=== PATIENT | female | born 1985 | race Caucasian/White ===

== ENCOUNTER 2016-06-04 14:52 | Emergency (ER) | payer OTHER ==
[~2016-06-04] VITALS: Ht 167.6 cm; Wt 63.6 kg
[2016-06-04 15:22] VITALS: BP 133/88; PULSE 117; RESP 16; O2SAT 100
--- NOTE | 2016-06-04 17:14 | ED.REPORT ---
HPI-Rash / Abscess Date of Service Jun 04, 2016 ED Provider: Cristi Medina MD A 31 year old female with a history of MRSA and prior tooth extraction presents to the ED complaining of abscesses on her face and upper extremities onset 2 weeks ago. There is puss coming out of the abscess on her hands. She feels like the abscesses are going into her noise. She denies any fever, diaphoresis, or chills. She is not currently taking any current medications but does report an allergy to Lidocaine. She also has a toe nail on her left foot that she would like taken off, an injury from dropping a flashlight on her foot. She has a scratch on her arm from a sticker leggett. She is cranky because she has been waiting in the ED for a long time Nursing Notes Stated Complaint: INFECTION Chief Complaint: Skin Rash/Abscess Nursing Notes Reviewed: Yes ([employer] not reconciled) Allergies: Coded Allergies: Procaine HCl (Verified Allergy, Unknown, unknown, 06/04/16) Scheduled Chlorhexidine Gluconate (Chlorhexidine Gluconate) 118 Ml Liquid 10 ML TP DAILY Mupirocin (Mupirocin) 2 % Oin.pf.sheela 1 GM TP BID Sulfamethoxazole/Trimeth 800-160 mg (Bactrim DS) 1 Each Tablet 1 TABLET PO BID General Time Seen by MD: 17:11 Chief Complaint Abscess Hx Obtained From: Patient Arrived By: Walk-in Onset Occurred: More than a week ago... (2 weeks) Symptom Duration: Since onset Location: : Generalized Recent Healthcare: No recent doctor visit Similar Sx Previous: Yes (Has had MRSA in the past. ) Past Medical History Past Medical History abscess numerous lacerations prior tooth extractions MRSA in the past. Past Surgical History none Smoking History Current Every Day Smoker Social History Alcohol Use: Denies alcohol use Drug Use: In recovery, Meth, THC Other Social History: Good social support, Local resident Occupation unemployed, homeless Ambulatory Status Independent Review of Systems Review of Systems Note: Skin abscesses. Constitutional: Denies: Chills, Fever Skin: Denies Diaphoresis Complete sys rev & neg: except as marked. Physical Exam Physical Exam Notes: Initial Vital Signs Vital Signs (First) Date Time Temp Pulse Resp B/P Pulse Ox O2 Delivery O2 Flow Rate FiO2 06/04/16 15:22 37.2 117 16 133/88 100 Room Air Initial VS: Reviewed, Vital signs normal General/Constitutional: Awake, Alert, No acute distress (No visible distress), Well appearing Patient requests empiric treatment. Overall, the patient is in poor hygiene. Color / Condition: Positive: Lesion present... (Multiple skin lesions across face, hands, and upper extremities in various states of healing. All are scabbed over, none appear cellulitic. She reports purulence, but there are no signs of induration or drainage. Suspicious for MRSA. ) Head / Eyes: Normocephalic, PERRL, EOMI ENT: Airway patent, Mucous membranes moist Respiratory / Chest: Atraumatic, Breath sounds NL, Breath sounds = bilat, No respiratory distress, No rales, No rhonchi, No wheezing Cardiovascular: Heart rate NL, Regular rhythm, Heart sounds NL, No gallop, No murmurs, No rubs Upper Extremity / MS: No swelling, No edema Lower Extremity / Pelvis / MS: No swelling, No edema Neurologic: Oriented X3, Speech NL Neck: Full range of motion Abdomen: No guarding, No rebound Back: Full range of motion Wrist / Hand: Full range of motion Left second toe has a nail that came off from previous injury. The nail was already off but I removed it. No underlying infection of nail bed or any other problems. Re-Eval/Medical Decision Med Decision/Clinical Course This is a 31-year-old female presents with multiple lesions over the face and arms that she is concerned may be MRSA. She reports a previous history of MRSA in the past, "scratch on the hand and then developed an infection there, she drained it and does report some purulence, but then has developed several lesions in the face and arms-she reports she is drained them and they are now crusting over, but because she developed lesions on the face neck she would wishes to be treated with antibiotics for MRSA. She is not febrile she is not toxic she clinically appears well. She does have multiple lesions across the face, back of the neck, and upper extremities-however none appear clearly actively infected, there crusting over, but there is no induration, fluctuance or anything that appears amenable to incision and drainage, or particularly useful for a wound culture. The patient wishes to be simply empirically treated-and I think given the multiple lesions this is reasonable. The patient's being started on Bactrim, and have also recommended Bactroban ointment, and chlorhexidine washes. Additionally the patient reports a recent injury to the left second toe which he dropped a weight on it, not the toenail off, she wishes it removed. He was simply hanging on and did not require any special special management was simply removed. It did not require any instrumentation. The underlying nailbed looks okay with no signs of injury. There is no signs of infection there. She is discharged in stable condition. , Source of Hx: Old records Re-Evaluation/Progress : Time of Eval: 17:11 Re-Evaluation/Progress Note: Rechecked patient, discussed diagnosis, and plan for discharge. Patient understands and agrees with the plan. All questions addressed. 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 The multiple lesions are concerning for the possibility of MRSA. Per should any that have overt cellulitis, or signs that they are needing to be drained today-it appears that you have drained most of them and they are in various states of healing. Given there are multiple sites, an antibiotic to help prevent further spread and resolution is recommended. 2. Take the antibiotic trimethoprim sulfa 1 tablet twice a day for 14 days. You can also apply the antibiotic ointment mupirocin twice a day to the wounds. 3. I recommend [id number] chlorhexidine soap available at pharmacies and uses small amount daily across the skin-to reduce spread. 4. Remove the nail on the left foot that had been previously damage. We expect an email to occur, but will take a number of months-and the initial nail off and looks unusual, but normalizes over time. 5. Return if new or worsening symptoms. 6. If he needed primary care provider, follow up with the [facility] residency clinic Referrals: NOPCP (PCP) Scribe Attestation Portions of this note were transcribed by Theron Rivera. I, Dr. Medina personally performed the history, physical exam and medical decision-making; I reviewed and confirmed the accuracy of the information in the transcribed note. Signed by: Shawn Bermudez, 06/04/2016 [id number]. copies to: Cristi Sewell MD Jun 04, 2016 17:13 Theron Rivera Jun 04, 2016 17:22
[2016-06-04] MEDS ORDERED: Trimethoprim-Sulfa 160 mg-800 mg Tablet PO ONE (17:20)
[2016-06-04] MEDS ORDERED: SULF1TAB7 PO (17:28)
[2016-06-04] MEDS ORDERED: MUPI1OIN6 TP (17:28)
[2016-06-04] MEDS ORDERED: CHLO118L3 TP (17:28)
== END 2016-06-04 17:47 | disposition home or self-care (01) ==
LOC: SED 14:52
DX: S90.935A Unspecified superficial injury of left lesser toe(s), initial encounter (principal); T14.8 Other injury of unspecified body region; L02.01 Cutaneous abscess of face; L02.511 Cutaneous abscess of right hand; L02.512 Cutaneous abscess of left hand; B95.62 Methicillin resistant Staphylococcus aureus infection as the cause of diseases classified elsewhere; W20.8XXA Other cause of strike by thrown, projected or falling object, initial encounter; Y93.9 Activity, unspecified; Y99.8 Other external cause status; Y92.9 Unspecified place or not applicable; F17.200 Nicotine dependence, unspecified, uncomplicated; F15.10 Other stimulant abuse, uncomplicated; F12.10 Cannabis abuse, uncomplicated; Z59.0 Homelessness; Z88.4 Allergy status to anesthetic agent

== ENCOUNTER 2016-09-16 18:43 | Emergency (ER) | payer OTHER ==
[~2016-09-16] VITALS: Ht 167.6 cm; Wt 68.2 kg
[~2016-09-16 18:43] MED LIST: CHLO118L3 TP; MUPI1OIN6 TP; SULF1TAB7 PO
[2016-09-16 18:53] VITALS: BP 128/83; PULSE 92; RESP 16; O2SAT 100
== END 2016-09-16 19:26 | disposition left against medical advice (07) ==
LOC: SED 18:43
DX: K08.89 Other specified disorders of teeth and supporting structures (principal); Z53.21 Procedure and treatment not carried out due to patient leaving prior to being seen by health care provider

== ENCOUNTER 2016-11-18 23:37 | Inpatient (IN) | payer OTHER ==
[~2016-11-18] VITALS: Ht 167.6 cm; Wt 70.0 kg
[2016-11-18 23:41] VITALS: BP 138/90; PULSE 95; RESP 18; O2SAT 100
[2016-11-19] VITALS (7 sets, daily range): BP systolic 119–142; BP diastolic 70–90; PULSE 55–67; RESP 16; O2SAT 99–100
[2016-11-19] MEDS ORDERED: Famotidine Inj 20 MG in IV Premix 1 EACH IV ONE (00:45)
[2016-11-19] MEDS ORDERED: 0.9% Sodium Chloride 1,000 ML IV SCH (00:45)
[2016-11-19] MEDS ORDERED: Albuterol-Ipratropium 3 mL Inhalation Solution NEB ONE (00:45)
[2016-11-19] MEDS ORDERED: Promethazine Inj 25 MG in 0.9% Sodium Chloride 50 ML IV ONE (00:45)
--- NOTE | 2016-11-19 01:14 | ED.REPORT ---
HPI-Extremity Problem Upper Date of Service Nov 19, 2016 ED Provider: Hung Hylton MD Pt is a 31 y/o female who presents to the ED c/o a laceration to her right hand onset about 1700 on 11/17/16 . She states she was using a dirty filet knife when she cut her hand. Pt admits to shooting meth, but states that she did not shoot near her hand. Additional symptoms include erythema and edema to her right hand. She denies fever, chills, or diaphoresis. Nursing Notes Stated Complaint: STABBED RT HAND LAST NIGHT TIP POSSIBLY STILL IN Chief Complaint: Skin Rash/Abscess Nursing Notes Reviewed: Yes Allergies: Coded Allergies: Procaine HCl (Verified Allergy, Unknown, unknown, 06/04/16) Scheduled Chlorhexidine Gluconate (Chlorhexidine Gluconate) 118 Ml Liquid 10 ML TP DAILY Mupirocin (Mupirocin) 2 % Oin.pf.sheela 1 GM TP BID Sulfamethoxazole/Trimeth 800-160 mg (Bactrim DS) 1 Each Tablet 1 TABLET PO BID General Time Seen by MD: 01:13 Chief Complaint Hand injury right Hx Obtained From: Patient Arrived By: Walk-in Onset Occurred: 2 days ago Symptom Duration: Constant Caused by: Knife wound Location: : Hand right Quality: Painful Severity: Current: Mild Severity: Maximum: Moderate Immunizations: Tetanus not up to date Recent Healthcare: Recent doctor visit Similar Sx Previous: No Past Medical History Past Medical History abscess numerous lacerations prior tooth extractions MRSA in the past. Past Surgical History none Smoking History Current Every Day Smoker Social History Alcohol Use: Denies alcohol use Drug Use: IV drugs, Meth, THC Other Social History: Good social support, Local resident Occupation unemployed, homeless Ambulatory Status Independent Review of Systems Laceration to R hand with erythema and edema Constitutional: Denies: Chills, Fever Skin: Denies Diaphoresis Neurologic: Denies: Headache, Vision change Complete sys rev & neg: except as marked. Respiratory: Denies: Non-productive cough, Prod cough, clear, Shortness of breath Physical Exam Initial Vital Signs Vital Signs (First) Date Time Temp Pulse Resp B/P Pulse Ox O2 Delivery O2 Flow Rate FiO2 11/18/16 23:41 36.8 95 18 138/90 100 Room Air Initial VS: Reviewed Head / Eyes: Atraumatic, Normocephalic Neck: Supple, Full range of motion Abdomen / GI: Soft, Non-tender Lower Extremities: Vascular intact, Neuro intact, No swelling, No tenderness Neurologic: Alert, Oriented, Nonfocal Psychiatric: Mood/affect normal, Behavior normal, Normal thought content General/Constitutional: Awake, Alert Respiratory / Chest: Atraumatic, Breath sounds NL, Breath sounds = bilat, No respiratory distress Cardiovascular: Heart rate NL, Regular rhythm, Heart sounds NL Wrist/Hand: Severe tenderness along extensor tendon Laceration at MCP joint in R hand Interpretation & Diagnostics Lab Results Interpretation Result Diagram: 11/19/16 0140 11/19/16 0140 Test 11/19/16 01:40 White Blood Count 9.3th/mm3 (3.8-10.1) Red Blood Count 4.87mil/mm3 (3.90-5.20) Hemoglobin 14.4g/dL (12.0-15.6) Hematocrit 42.8% (35.0-46.0) Mean Corpuscular Volume 87.9fL (81-100) Mean Corpuscular Hemoglobin 29.6pg (27.0-35.0) Mean Corpuscular Hemoglobin Concent 33.6% (32.0-37.0) Red Cell Distribution Width 14.0% (12.3-15.4) Platelet Count 258bil/L (150-400) Neutrophils (%) (Auto) 63.6% (40-74) Lymphocytes (%) (Auto) 23.8% (14-46) Monocytes (%) (Auto) 10.1% (4-12) Eosinophils (%) (Auto) 2.1% (0-5) Basophils (%) (Auto) 0.3% (0-3) Erythrocyte Sedimentation Rate 3mm/hr (0-32) Prothrombin Time 9.5sec (8.1-12.5) Prothromb Time International Ratio 0.89ratio Activated Partial Thromboplast Time 27.4sec (22.8-33.0) Sodium Level 137mEq/L (134-144) Potassium Level 4.2mEq/L (3.5-5.2) Chloride Level 100mEq/L (97-108) Carbon Dioxide Level 26mmol/L (18-29) Blood Urea Nitrogen 18mg/dL (6-20) Creatinine 0.60mg/dL (0.57-1.00) Estimat Glomerular Filtration Rate 169mL/min (>59) Glucose Level 88mg/dL (60-99) Lactic Acid Level 0.5mmol/L (0.4-2.0) Calcium Level 9.1mg/dL (8.5-10.1) Magnesium Level 2.2mg/dL (1.6-2.6) Total Bilirubin < 0.2mg/dL (0.0-1.2) Aspartate Amino Transf (AST/SGOT) 17U/L (0-50) Alanine Aminotransferase (ALT/SGPT) 17U/L (0-32) Alkaline Phosphatase 78U/L (25-150) Total Protein 7.8g/dL (6.4-8.4) Albumin 4.2g/dL (3.4-5.0) Procalcitonin 0.04ng/mL (0.00-0.08) X-Ray Chest Interpretation Chest Xray Interpretation: No acute findings. View: Portable, 1 view Interpretation / Wet Read by: Wet read ED physician Re-Eval/Medical Decision Med Decision/Clinical Course 31-year-old intermittent IV drug abuser presents after a deep puncture wound with a fillet knife into the dorsum of her MCP second finger right hand. She has exquisite tenderness to extension and tenderness over the extensor tendon consistent with developing Tenosynovitis. Begun with IV antibiotics and orthopedics contacted and will see this morning. Fingers placed in a splint Source of Hx: Old records Re-Evaluation/Progress : Time of Eval: 01:13 Re-Evaluation/Progress Note: Discussed plan for admission. Pt understands and agrees with plan. All questions addressed. Consultation #1: Referral / Consult Name: Matty Stuart MD Consulted With: Hospitalist Call Returned at: 03:00 Water Sponger: Will see patient, Agrees with plan, Accepts admit Note: Discussed pt's case with hospitalist, Dr. Stuart. He accepts admission. Consultation #2: Referral / Consult Name: Dennis Suggs DO Consulted With: Ortho hand Call Returned at: 06:16 Water Sponger: Will see patient, Agrees with eval, Agrees with plan Note: Discussed pt's case with orthoDr. Suggs. Counseled Regarding: Diagnosis, Lab results, Need for admission Discharge & Departure Impression: Primary Impression: Puncture wound, hand Encounter type: initial encounter Foreign body presence: unspecified Laterality: right Qualified Code: S61.431A - Puncture wound without foreign body of right hand, initial encounter Additional Impressions: Other tenosynovitis of hand and wrist Methamphetamine abuse Disposition: ADMITTED TO HOSPITAL Discharge Condition All VS Reviewed: Yes Condition: Stable Referrals: Arabella Hernandez MD Scribe Attestation Portions of this note were transcribed by Bisi Reynoso. I, Dr. Hylton, personally performed the history, physical exam and medical decision-making; I reviewed and confirmed the accuracy of the information in the transcribed note. copies to: Arabella Hernandez MD, Christopher W MD Nov 19, 2016 01:14 Bisi Reynoso Nov 19, 2016 01:24
[2016-11-19] MEDS ORDERED: 0.9% Sodium Chloride 1,000 ML IV ONE (01:21)
[2016-11-19] MEDS ORDERED: Meropenem Inj 1,000 MG in 0.9% Sodium Chloride 100 ML IV ONE (01:25)
[2016-11-19] MEDS ORDERED: Clindamycin Inj 900 MG in IV Premix 1 EACH IV ONE (01:25)
[2016-11-19] MEDS ORDERED: Vancomycin Dose per Pharmacist XX ONE (01:25)
[2016-11-19] MEDS ORDERED: Vancomycin Inj 1,500 MG in 0.9% Sodium Chloride 500 ML IV ONE (01:30)
[2016-11-19 01:50] LABS: BASOPHILS % (AUTO) 0.3 % (0-3); EOSINOPHILS % (AUTO) 2.1 % (0-5); MONOCYTES % (AUTO) 10.1 % (4-12); Mean Corpuscular Hemoglobin 29.6 pg (27.0-35.0); Mean Corpuscular Volume 87.9 fL (81-100); NEUTROPHILS % (AUTO) 63.6 % (40-74); Platelet Count 258 bil/L (150-400)
[2016-11-19 02:07] LABS: ERYTHROCYTE SEDIMENTATION RATE 3 mm/hr (0-32)
[2016-11-19 02:09] LABS: INR 0.89 ratio
[2016-11-19 02:26] LABS: Magnesium 2.2 mg/dL (1.6-2.6)
[2016-11-19] MEDS ORDERED: Ondansetron 2 mg/mL 2 mL Inj IVPUSH PRN (03:00)
[2016-11-19] MEDS ORDERED: Polyethylene Glycol (PEG) 17 Gm Powder PO PRN (03:00)
[2016-11-19] MEDS ORDERED: Alum-Mag Hydrox-Simeth 30 mL Suspension PO PRN (03:00)
[2016-11-19] MEDS ORDERED: oxyCODONE-Acetamin 5-325 mg Tablet PO ONE (03:55)
--- NOTE | 2016-11-19 03:58 | PCM.HPMED ---
Subjective Date of Service Nov 19, 2016 Primary Provider: Admitting Physician: Primary Care Physician: Sara Attending Physician: Admit Status: From the Emergency Department, Full Admit Chief Complaint: Right hand swelling and pain History of Present Illness: Bhavani Leon is a 31 yo female with Methamphetamine IV Abuse, Multiple infections including MRSA who presents to [facility] emergency department c/o a laceration to her right hand. Patient reported she accidentally stable her right hand with a knife on Friday. She was some bleeding initially and a small open wound. Progressively worsening in terms of swelling and pain to the point she cannot make a fist or open hand, especially pointing finger. Denies any fever or chills. She admits to shooting meth, but states that she did not shoot near her hand. Case discussed with Dr Hylton, concerning for tendosynovitis. Plans to admit for IV antibiotics and assessment by the Orthopedic surgeons Review of Systems: Pertinent positives as noted in HPI. All other systems were reviewed and are negative Allergies Coded Allergies: Procaine HCl (Verified Allergy, Unknown, unknown, 06/04/16) Home Medications None reported PMH Tooth Abscess numerous lacerations Prior tooth extractions MRSA infections in the past . Surgical History none Family History Both parents healthy Social History Hx Alcohol Use: No Hx Substance Use: Yes (meth) Hx Tobacco Use: Yes Smoking Status: Current Every Day Smoker Living Arrangement: Homeless Exam Vital Signs Vital Sign - Last Date Time Temp Pulse Resp B/P Pulse Ox O2 Delivery O2 Flow Rate FiO2 11/18/16 23:41 36.8 95 18 138/90 100 Room Air Exam General: Alert, Oriented X3, Cooperative, No acute Distress Eyes: PERRLA, Scleral Anicteric Mouth: Mouth Normal, Mucous Membranes Moist/Abrams Neck: Supple, no Thyromegaly, trachea central. Chest & Lungs: Clear to auscultation & percussion, No adventitious breath sounds, no crackles, no wheeze Cardiovascular: Normal S1, Normal S2, No Murmurs/Rubs/Gallops, Regular Rate/ Rhythm Pulses: Radial (present and equal), Dorsalis Pedi (present and equal) Abdomen: Soft, Non-tender, Non-distended, Normoactive bowel tones. Musculoskeletal: Unremarkable. Normal range of motion, no swollen or erythematous joints Extremities: No edema, no cyanosis, no clubbing. Left hand in a dressing ( Severe tenderness along extensor tendon. Laceration at MCP joint in R hand) Skin: No rashes. Warm and dry, no erythematous areas Neurological: Grossly neurologically intact, Normal Speech, Sensation Intact Lymphatic: Lymph nodes Cervical and Axillary not palpable. Lab and Diagnostics Labs Laboratory Tests Test 11/19/16 01:40 White Blood Count 9.3th/mm3 (3.8-10.1) Red Blood Count 4.87mil/mm3 (3.90-5.20) Hemoglobin 14.4g/dL (12.0-15.6) Hematocrit 42.8% (35.0-46.0) Mean Corpuscular Volume 87.9fL (81-100) Mean Corpuscular Hemoglobin 29.6pg (27.0-35.0) Mean Corpuscular Hemoglobin Concent 33.6% (32.0-37.0) Red Cell Distribution Width 14.0% (12.3-15.4) Platelet Count 258bil/L (150-400) Neutrophils (%) (Auto) 63.6% (40-74) Lymphocytes (%) (Auto) 23.8% (14-46) Monocytes (%) (Auto) 10.1% (4-12) Eosinophils (%) (Auto) 2.1% (0-5) Basophils (%) (Auto) 0.3% (0-3) Erythrocyte Sedimentation Rate 3mm/hr (0-32) Prothrombin Time 9.5sec (8.1-12.5) Prothromb Time International Ratio 0.89ratio Activated Partial Thromboplast Time 27.4sec (22.8-33.0) Sodium Level 137mEq/L (134-144) Potassium Level 4.2mEq/L (3.5-5.2) Chloride Level 100mEq/L (97-108) Carbon Dioxide Level 26mmol/L (18-29) Blood Urea Nitrogen 18mg/dL (6-20) Creatinine 0.60mg/dL (0.57-1.00) Estimat Glomerular Filtration Rate 169mL/min (>59) Glucose Level 88mg/dL (60-99) Lactic Acid Level 0.5mmol/L (0.4-2.0) Calcium Level 9.1mg/dL (8.5-10.1) Magnesium Level 2.2mg/dL (1.6-2.6) Total Bilirubin < 0.2mg/dL (0.0-1.2) Aspartate Amino Transf (AST/SGOT) 17U/L (0-50) Alanine Aminotransferase (ALT/SGPT) 17U/L (0-32) Alkaline Phosphatase 78U/L (25-150) Total Protein 7.8g/dL (6.4-8.4) Albumin 4.2g/dL (3.4-5.0) Procalcitonin 0.04ng/mL (0.00-0.08) Microbiology 11/19/16 Blood Culture, Received Pending Result Diagram: 11/19/16 01411/19/16 014 Assessment & Plan Bhavani Leon is a 31 yo female with Methamphetamine IV Abuse, Multiple infections including MRSA who presents to [facility] emergency department c/o a laceration to her right hand. 1. Hand laceration with tendosynovitis. Present on admission - continue Vancomycin IV, received Clindamycin and Meropenem - day team to consult with Dr German for antibiotic choice recommendations - Ortho consulted by Dr Hylton to determine needs for surgical debridement 2. Methamphetamine Abuse, ongoing - patient not interested in stopping at this point - monitor for withdrawal symptoms 3. Nicotine dependence Cessation discussed and encouraged - Nicotine patch upon request - Acetaminophen as needed for mild pain/fever/headache - Bowel regimen as needed - Antiemetic as needed Patient admitted under inpatient status with expected length of stay > 2 midnights for severity of present symptoms, complexities of treatment plan and risk for adverse event . Resuscitation Status: CPR: Attempt Resuscitation Matty Stuart MD Nov 19, 2016 03:04
[2016-11-19 04:14] LABS: APPEARANCE,URINE SLIGHTLY CLOUDY (CLEAR,HAZY); COLOR,URINE STRAW (YELLOW); OCCULT BLOOD,URINE NEGATIVE (NEGATIVE); PH,URINE 7.5 (5.0-8.0); UROBILINOGEN,URINE NORMAL (NORMAL)
[2016-11-19] MEDS ORDERED: TdaP Vaccine 0.5 mL Inj IM ONE (04:20)
--- NOTE | 2016-11-19 04:26 | PCM.CONPHA ---
Subjective Date of Service: Nov 19, 2016 Requesting Provider: Matty Stuart MD Reason for Pharmacy Consult: Vancomycin Dosing Objective Vital Signs Date Time Temp Pulse Resp B/P Pulse Ox O2 Delivery O2 Flow Rate FiO2 11/19/16 04:11 36.6 16 134/90 100 Room Air 11/18/16 23:41 36.8 95 18 138/90 100 Room Air Weight (Kilograms): 68 Height (Feet): 5 Height (Inches): 6 Test 11/19/16 01:40 11/19/16 04:00 White Blood Count 9.3th/mm3 (3.8-10.1) Red Blood Count 4.87mil/mm3 (3.90-5.20) Hemoglobin 14.4g/dL (12.0-15.6) Hematocrit 42.8% (35.0-46.0) Mean Corpuscular Volume 87.9fL (81-100) Mean Corpuscular Hemoglobin 29.6pg (27.0-35.0) Mean Corpuscular Hemoglobin Concent 33.6% (32.0-37.0) Red Cell Distribution Width 14.0% (12.3-15.4) Platelet Count 258bil/L (150-400) Neutrophils (%) (Auto) 63.6% (40-74) Lymphocytes (%) (Auto) 23.8% (14-46) Monocytes (%) (Auto) 10.1% (4-12) Eosinophils (%) (Auto) 2.1% (0-5) Basophils (%) (Auto) 0.3% (0-3) Erythrocyte Sedimentation Rate 3mm/hr (0-32) Prothrombin Time 9.5sec (8.1-12.5) Prothromb Time International Ratio 0.89ratio Activated Partial Thromboplast Time 27.4sec (22.8-33.0) Sodium Level 137mEq/L (134-144) Potassium Level 4.2mEq/L (3.5-5.2) Chloride Level 100mEq/L (97-108) Carbon Dioxide Level 26mmol/L (18-29) Blood Urea Nitrogen 18mg/dL (6-20) Creatinine 0.60mg/dL (0.57-1.00) Estimat Glomerular Filtration Rate 169mL/min (>59) Glucose Level 88mg/dL (60-99) Lactic Acid Level 0.5mmol/L (0.4-2.0) Calcium Level 9.1mg/dL (8.5-10.1) Magnesium Level 2.2mg/dL (1.6-2.6) Total Bilirubin < 0.2mg/dL (0.0-1.2) Aspartate Amino Transf (AST/SGOT) 17U/L (0-50) Alanine Aminotransferase (ALT/SGPT) 17U/L (0-32) Alkaline Phosphatase 78U/L (25-150) Total Protein 7.8g/dL (6.4-8.4) Albumin 4.2g/dL (3.4-5.0) Procalcitonin 0.04ng/mL (0.00-0.08) Urine Color Straw (YELLOW) Urine Appearance Slightly cloudy Urine pH 7.5 (5.0-8.0) Urine Specific [place] 1.015 (1.003-1.035) Urine Protein Negativemg/dL (NEG,TRACE) Urine Glucose (UA) Negativemg/dL (NEGATIVE) Urine Ketones Negativemg/dL (NEGATIVE) Urine Occult Blood Negative (NEGATIVE) Urine Nitrite Negative (NEGATIVE) Urine Bilirubin Negative (NEGATIVE) Urine Urobilinogen Normalmg/dL (NORMAL) Urine Leukocyte Esterase Negative (NEGATIVE) Urine RBC 0-2/hpf (0-2) Urine WBC 0-5/hpf (0-5) Urine Epithelial Cells Moderate/hpf (NONE-MOD) Urine Crystals Amorphous phosphates Urine Bacteria Few/hpf (NONE-FEW) Urine Hyaline Casts None/lpf (NONE) Urine Granular Casts None seen (NONE SEEN) Urine Waxy Casts None seen (NONE SEEN) Urine Red Blood Cell Casts None seen (NONE SEEN) Urine White Blood Cell Casts None seen (NONE SEEN) Urine Mucus None seen (None Seen) Urine Trichomonas None seen (NONE SEEN) Urine Yeast None (NONE SEEN) Urinalysis Comment None Urine Culture Reflexed Not indicated Assessment/Plan Assessment/Plan A: * Vancomycin dosing by pharmacy for 31 y/o woman with hand laceration * She was given a 1500 mg IV vancomycin loading dose in the ED * Estimated CrCl for this patient is > 120 mL/min (Cockcroft & Gault) * Estimated vancomycin half-life is 7 hours and estimated volume of distribution is 48 liters P: * Start vancomycin 750 mg IV every 8 hours * Target a vancomycin trough in the range of 10 - 15 mcg/mL * Draw a trough level prior to the fourth dose Thank you. Pharmacy will continue to follow this patient. Marilynn Alfaro Nov 19, 2016 04:26
[2016-11-19] MEDS: 0.9% Sodium Chloride 1,000 ML IV SCH ×2 (05:16→12:59)
--- NOTE | 2016-11-19 05:37 | NUR ---
Admit Pt arrived to [facility] unit in room 1011 at 0440 from ED via stretcher. Pt is alert, oriented, and able to make needs known. No behavioral or safety issue noted. Denies N/V/D, pain, resp distress and/or SOB. c/o some discomfort when move right hand d/t trauma. Right hand splint dressing is C/D/I. Steady gait noted when transfer from stretcher to bed. Pt is resting comfortably in bed and call light w/in reach. NPO per orders. Care continues.
[2016-11-19] MEDS ORDERED: Vancomycin Dose per Pharmacist XX SCH (08:30)
[2016-11-19] MEDS: oxyCODONE 1 mg/mL 5 mL Liquid PO PRN ×3 (09:05→21:13)
[2016-11-19] MEDS ORDERED: Vancomycin Inj 750 MG in 0.9% Sodium Chloride 250 ML IV SCH (10:00)
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
--- NOTE | 2016-11-19 11:10 | DRSVH ---
PROCEDURE: X-RAY CHEST ONE VIEW, PORTABLE ([id number]) INDICATIONS: pre-op TECHNIQUE: One view of the chest was acquired. COMPARISON: [facility], , CHEST 2VW, 03/11/2012, 18:29. FINDINGS: Surgical changes and devices: None. Lungs and pleura: No pleural effusions or pneumothorax. Lungs are clear. Mediastinum: Mediastinal contours appear normal. Heart size is normal. Bones and chest wall: No suspicious bony lesions. Overlying soft tissues appear unremarkable. IMPRESSION: No acute disease. Dictated by: Solomon Dee M.D. on 11/19/2016 at 10:07 Approved by: Solomon Dee M.D. on 11/19/2016 at 10:08
--- NOTE | 2016-11-19 14:39 | NUR ---
Social Work- Initial Assessment/Multidisciplinary Rounds Data: EMR reviewed. Pt is a 31 year old female admitted on 11/19/16 for tenosynovitis, hand cellulitis per H&P. Pt's insurance verified by [employer] and retroactive [facility] active 11-08. Pt has no PCP at this time. Pt discussed in multidisciplinary rounds, ID to see pt. Ortho has consulted. SW notified MD of pt's IVDU and requested Substance Abuse order, no Substance Abuse order received at this time. SW met with pt at bedside to discuss discharge planning, SW role explained. Pt alert and oriented x3. Pt was not very talkative, provided very short answers to complete this assessment. Pt resides in [place] on a piece of property in a trailer. There are multiple trailers on this property, pt reports "it's complicated." Pt declined any housing assistance resources at bedside. Pt is independent at baseline. Pt confirms that her SO or mother would transport home at discharge. Telephone number and plan written on patient's whiteboard, encouraged pt to call with any d/c needs. Assessment: Pt who is independent at baseline with a history of IVDU. Plan: Evolving; pt to receive ID consult. Pt likely to d/c back to her [place] [facility], SO or mother to transport via POV. SW will continue to follow for discharge needs and awaits substance abuse order. JUAN JOSÉ Kinney Addendum: 11/19/16 at 1445 by MITCHEL LEON SS Amended: Links added.
--- NOTE | 2016-11-19 14:53 | NUR ---
Pain Patient rated pain 10/10 this am po oxycodone given which patient slept afterwards. Patient denies numbness to ext. Right extremity in splint and amandeep wrap fingers warm but swelling noted. Patient with extremity elevated on pillows. Patient irritable this am but more pleasant this afternoon.
--- NOTE | 2016-11-19 15:21 | NUR ---
Social Work- Attempted Substance Abuse Assessment Current Circumstances/Reason for Referral: Pt is a 31 year old female admitted for tenosynovitis , hand cellulitis per H&P. Pt has history of IV methamphetamine use. SW received referral for Substance Abuse Assessment. SW met with pt at bedside to complete Substance Abuse Assessment. Pt declined speaking with [employer] regarding this topic. ER Documentation states that pt is not interested in ceasing use at this time. SW encouraged pt to contact [employer] if needs arise or if she changes her mind. Pt declined outpt CD resources at bedside. SW will continue to follow for d/c planning needs. JUAN JOSÉ Kinney
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
[2016-11-19] MEDS ORDERED: Piperacillin-Tazo 3.375 Gm Inj 3.375 GM in Dextrose 5% Minibag Plus 50 ML IV ONE (16:30)
[2016-11-19] MEDS: Piper-Tazo 3.375 Gm/50 mL D5W Minibag Plus - Q8H over 4 hrs IV SCH ×2 (21:16)
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
[2016-11-20] MEDS ORDERED: Vancomycin Serum Trough XX ONE (01:00)
[2016-11-20] MEDS: oxyCODONE 1 mg/mL 5 mL Liquid PO PRN ×3 (01:14→18:36)
[2016-11-20] MEDS: Piper-Tazo 3.375 Gm/50 mL D5W Minibag Plus - Q8H over 4 hrs IV SCH ×6 (04:30→20:49)
[2016-11-20 05:00] VITALS: BP 127/75; PULSE 56; RESP 16; O2SAT 100
--- NOTE | 2016-11-20 05:43 | NUR ---
urination.. pt has been refusing to urinate in the hat despite several attempts to remind pt.. only witness to 4 bathroom visits on this shift. Addendum: 11/20/16 at 0544 by AURELIA NAVARRETE CNA Amended: Links added.
[2016-11-20 06:25] LABS: BASOPHILS % (AUTO) 0.5 % (0-3); EOSINOPHILS % (AUTO) 5.7 % (0-5); MONOCYTES % (AUTO) 12.1 % (4-12); Mean Corpuscular Hemoglobin 29.8 pg (27.0-35.0); Mean Corpuscular Volume 88.8 fL (81-100); Platelet Count 234 bil/L (150-400)
--- NOTE | 2016-11-20 09:29 | DRSVH ---
PROCEDURE: MRI HAND RIGHT WITH AND WITHOUT CONTRAST ([id number]) INDICATIONS: ? R hand tensosynovitis or abscess TECHNIQUE: Noncontrast coronal T1 spin echo and T2 fast spin echo with fat saturation, axial proton density fast spin echo and T2 fast spin echo with fat saturation, axial T1 spin echo with fat saturation, sagitta l T1 spin echo and STIR through the hand and fingers. Post-contrast axial, coronal, and sagittal T1 spin echo through the hand and fingers. COMPARISON: [facility], CR, XR HAND 3VW RT, 11/19/2016, 0:51. FINDINGS: Image quality: Severely motion degraded examination. Bones: The bones are normally aligned, without marrow contusions or fractures. No intra-osseous les ions. Soft tissues: Subcutaneous edema involving the dorsal aspect of the hand at the level of the metacarp als. No discrete rim-enhancing abscess is seen. There is also edema adjacent to the flexor tendons of the index and middle finger although not well-seen due to motion artifact. This raises the possibili ty of low-grade tenosynovitis. IMPRESSION: No discrete rim-enhancing abscess. Diffuse subcutaneous edema involving the dorsal aspect of the hand at the level of the metacarpals. Mild fluid/edema adjacent to the flexor tendons of the index and middle finger suggesting low-grade t enosynovitis. No marrow signal changes or enhancement to suggest osteomyelitis. Severely motion degraded examination. Dictated by: Solomon Dee M.D. on 11/20/2016 at 8:17 Approved by: Solomon Dee M.D. on 11/20/2016 at 8:26
--- NOTE | 2016-11-20 09:32 | PCM.PNMED ---
Subjective Date of Service Nov 20, 2016 Subjective complains of ongoing right hand pain (although says a little better than yesterday) as well as generalized body aches. Exam Vital Signs Vital Sign - Last Date Time Temp Pulse Resp B/P Pulse Ox O2 Delivery O2 Flow Rate FiO2 11/20/16 05:00 37.2 56 16 127/75 100 Room Air Intake and Output 11/19/16 11/19/16 11/20/16 Cumulative From/Thru 15:00 23:00 07:00 11/18/16 23:41 - 11/20/16 06:14 Intake Total 556 ml 1242 ml 3412 ml Output Total 1400 ml 1400 ml Balance -844 ml 1242 ml 2012 ml Intake Oral 556 ml 993 ml 1549 ml IV Total 249 ml 1863 ml Output Urine Total 1400 ml 1400 ml # Voids 4 4 # Bowel Movements 0 0 0 General: Alert, Oriented X3, Cooperative, No Acute Distress Head: Normal Eyes: PERRLA, EOMI, Scleral Anicteric Nose: Mucous Membr Moist/[place] Mouth: Mucous Membr Moist/[place] Neck: Supple Chest & Lungs: Chest Wall Normal, Clear to auscultation & percussion Cardiovascular: Regular Rate/Rhythm Pulses: NL carotid, radial, femoral, DP, PT Abdomen: Non-tender, Non-distended, Normoactive bowel tones, Soft Extremities: No cyanosis/clubbing/edma bilat Skin: Other (right hand in dressing with some erythema of the the right index finger) Neurological: Grossly Neurologically Intact, Normal Speech IVs and Medications Medications Reviewed: Medications were reviewed in detail Lab and Diagnostics Result Diagram: 11/20/16 0555 11/20/16 0555 Assessment & Plan 31 yo female with Methamphetamine IV Abuse, Multiple infections including MRSA who presents to [facility] emergency department c/o a laceration to her right hand. # Acute right hand laceration with associated cellulitis and possible tendosynovitis. Present on admission - Appreciate ID and ortho consults. Will follow with recs - Continue with Zosyn and Zyvox - Continue with supportive care including IV Morphine prn for severe pain # Methamphetamine Abuse. Present on admission. - Patient not interested in stopping at this point - Monitor for withdrawal symptoms # Nicotine dependence - Cessation discussed and encouraged - Nicotine patch upon request Dispo: 1-2 days pending culture results and further recommendations by ID and ortho Resuscitation Status: CPR: Attempt Resuscitation Eduardo Moore Nov 20, 2016 09:32
--- NOTE | 2016-11-20 11:30 | PCM.PNORTH ---
Subjective Date of Service: Nov 20, 2016 Visit Information: Reason for Visit Tenosynovitis Cellulitis Hand Ivda Surgery/Surgery Date Post-Op Day # Date of Admission: Nov 19, 2016 at 03:55 Hospital Day #2 Subjective Patient complains of persistent pain. Pain is worse trying to lift the index finger. When the splint is unwrapped she reports it feels better being wrapped up and mobilized. Pain Management: PO Objective Exam Objective Patient is seen lying in bed Vital Signs and I/O Vital Sign - Last Date Time Temp Pulse Resp B/P Pulse Ox O2 Delivery O2 Flow Rate FiO2 11/20/16 05:00 37.2 56 16 127/75 100 Room Air Intake and Output 11/19/16 11/19/16 11/20/16 Cumulative From/Thru 15:00 23:00 07:00 11/18/16 23:41 - 11/20/16 06:14 Intake Total 556 ml 1242 ml 3412 ml Output Total 1400 ml 1400 ml Balance -844 ml 1242 ml 2012 ml Intake Oral 556 ml 993 ml 1549 ml IV Total 249 ml 1863 ml Output Urine Total 1400 ml 1400 ml # Voids 4 4 # Bowel Movements 0 0 0 Lab & Micro Results Laboratory Tests Test 11/19/16 15:42 11/20/16 05:55 Hepatitis B Surface Antigen Negative (Negative) Hepatitis C Antibody <0.1s/co ratio (0.0-0.9) HIV (1&2) Ag and Ab, 4th Generation Non reactive (Non Reactive) Streptozyme 246.0IU/mL (0.0-200.0) White Blood Count 5.8th/mm3 (3.8-10.1) Red Blood Count 4.80mil/mm3 (3.90-5.20) Hemoglobin 14.3g/dL (12.0-15.6) Hematocrit 42.6% (35.0-46.0) Mean Corpuscular Volume 88.8fL (81-100) Mean Corpuscular Hemoglobin 29.8pg (27.0-35.0) Mean Corpuscular Hemoglobin Concent 33.6% (32.0-37.0) Red Cell Distribution Width 14.1% (12.3-15.4) Platelet Count 234bil/L (150-400) Neutrophils (%) (Auto) 45.0% (40-74) Lymphocytes (%) (Auto) 36.5% (14-46) Monocytes (%) (Auto) 12.1% (4-12) Eosinophils (%) (Auto) 5.7% (0-5) Basophils (%) (Auto) 0.5% (0-3) Sodium Level 136mEq/L (134-144) Potassium Level 4.5mEq/L (3.5-5.2) Chloride Level 99mEq/L (97-108) Carbon Dioxide Level 23mmol/L (18-29) Blood Urea Nitrogen 11mg/dL (6-20) Creatinine 0.61mg/dL (0.57-1.00) Estimat Glomerular Filtration Rate 166mL/min (>59) Glucose Level 86mg/dL (60-99) Calcium Level 9.0mg/dL (8.5-10.1) Microbiology 11/19/16 Blood Culture - Preliminary, Resulted NO GROWTH AFTER 24 HOURS 11/19/16 MRSA (PCR) - Final, Complete Result Diagram: 11/20/16 0555 11/20/16 0555 General Appearance: Alert, Oriented X3, Cooperative, No Acute Distress Extremities: Distal Pulses Palpable Postop Sensory Motor: Distal Motor Intact, Distal Sensation Intact, NVI Distally SURGICAL WOUND : Wound Location/Description Elastic bandages are unwrapped from the right hand. There is mild swelling on the dorsum of the hand in the first compartment. There is faint erythema. There is no specific region of abscess Catheters: None Assessment & Plan Impression Right hand cellulitis Problems: Plan Continue with rest and elevation of the right hand. Continue the IV antibiotics per Dr. German Patient will be made nothing by mouth after midnight tonight and rechecked in the morning just in case infection should centralize to a specific abscess and then Dr. Suggs would consider I&D tomorrow Resuscitation Status: CPR: Attempt Resuscitation [place] Ordone[place] PA-C Nov 20, 2016 11:30
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
--- NOTE | 2016-11-20 12:54 | NUR ---
Mood /pain Patient's temperament can change very quickly during care. Patient cursing majority of time when spoken to or refuses to talk and answer questions. Patient with pain to right hand medicated with po oxycodone elixir. Patient is moving here fingers and states better than yesterday + cap refill noted. Extremity in splint.
[2016-11-20 14:50] VITALS: BP 106/64; PULSE 63; RESP 14; O2SAT 99
[2016-11-20 20:19] VITALS: BP 113/74; PULSE 67; RESP 18; O2SAT 100
[2016-11-21] MEDS: oxyCODONE 1 mg/mL 5 mL Liquid PO PRN ×3 (01:16→19:23)
[2016-11-21] MEDS: Piper-Tazo 3.375 Gm/50 mL D5W Minibag Plus - Q8H over 4 hrs IV SCH ×6 (04:46→20:55)
--- NOTE | 2016-11-21 06:24 | NUR ---
Pain Patient sleeping most of shift. Patient stated Pain was 8/10. Liquid Oxycodone 10mg given. Patient appeared frustrated when woken for medications. Patient NPO after midnight. Good cap refill. Vitals stable. Care continues.
[2016-11-21 07:10] VITALS: BP 128/78; PULSE 54; RESP 20; O2SAT 99
--- NOTE | 2016-11-21 08:23 | PROG NOTE ---
[address] [address] PROGRESS NOTE PATIENT: ASHER RODRÍGUEZ : 1985 MR#: [id number] ADMIT: 11/19/2016 JOB ID: [id number] DATE: 11/21/2016 SUBJECTIVE: The patient seen and examined. Doing a bit better. She states that her pain has improved to some degree. OBJECTIVE: Blood pressure 128/78, pulse rate 54, respirations 20, temperature 36.8. She is alert and cooperative, in no acute distress. Right hand dorsal swelling has improved to some degree. She is able to flex and extend her index finger and the pain has improved. She continues to have some swelling in the first webspace area but this is less tender. There is no significant erythema in the area. I do not appreciate any fluctuance. No significant swelling, redness or erythema over the palmar aspect of the hand. ASSESSMENT: Right hand cellulitis, which is improving with medical management. PLAN: I recommend continue antibiotics and recommend she begin working with occupational therapy on hand range of motion. I do not appreciate any indication for surgical intervention at this time.
--- NOTE | 2016-11-21 09:38 | NUR ---
Evaluation completed. Please go to "Notes" then click on "Assessments and Notes" (bottom left corner of screen). Then select appropriate discipline tab on top of screen.
--- NOTE | 2016-11-21 11:14 | NUR ---
Telemetry - refused by patient.
[2016-11-21] MEDS ORDERED: Oritavancin Diphosphate 1,200 MG in Dextrose 5% 1,000 ML IV ONE (11:45)
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
[2016-11-21 13:23] VITALS: BP 105/66; PULSE 67; RESP 18; O2SAT 99
[2016-11-21] MEDS: Amoxicillin-Clav 875-125 mg Tablet PO SCH ×2 (13:30→20:55)
--- NOTE | 2016-11-21 15:04 | PCM.PNMED ---
Subjective Date of Service Nov 21, 2016 Subjective Says right hand starting to feel a little better. Denies any new issues/ complaints. Exam Vital Signs Vital Sign - Last Date Time Temp Pulse Resp B/P Pulse Ox O2 Delivery O2 Flow Rate FiO2 11/21/16 13:23 36.9 67 18 105/66 99 Room Air Intake and Output 11/20/16 11/20/16 11/21/16 Cumulative From/Thru 15:00 23:00 07:00 11/18/16 23:41 - 11/21/16 06:42 Intake Total 2269 ml 190 ml 5871 ml Output Total 1400 ml Balance 2269 ml 190 ml 4471 ml Intake Oral 2076 ml 3625 ml IV Total 193 ml 190 ml 2246 ml Output Urine Total 1400 ml # Voids 4 8 # Bowel Movements 0 0 Exam General: Alert, Cooperative, No Acute Distress Head: Normal Eyes: Scleral Anicteric Nose: Mucous Membr Moist/[place] Mouth: Mucous Membr Moist/[place] Neck: Supple Chest & Lungs: Chest Wall Normal, Clear to auscultation bilat Cardiovascular: Regular Rate/Rhythm Pulses: NL carotid, radial, femoral, DP, PT Abdomen: Non-tender, Non-distended, Normoactive bowel tones, Soft Extremities: No cyanosis/clubbing/edema bilat Skin: Other (right hand in dressing with some erythema of the the right index finger) Neurological: Grossly Neurologically Intact, Normal Speech IVs and Medications Medications Reviewed: Medications were reviewed in detail Lab and Diagnostics Result Diagram: 11/20/16 0555 11/20/16 0555 X-Rays, CTs and MRIs Date of Service: 11/20/16 0700 PROCEDURE: MRI HAND RIGHT WITH AND WITHOUT CONTRAST ([id number]) IMPRESSION: No discrete rim-enhancing abscess. Diffuse subcutaneous edema involving the dorsal aspect of the hand at the level of the metacarpals. Mild fluid/edema adjacent to the flexor tendons of the index and middle finger suggesting low-grade tenosynovitis. No marrow signal changes or enhancement to suggest osteomyelitis. Severely motion degraded examination. Dictated by: Solomon Dee M.D. on 11/20/2016 at 8:17 Approved by: Solomon Dee M.D. on 11/20/2016 at 8:26 Assessment & Plan 31 yo female with Methamphetamine IV Abuse, Multiple infections including MRSA who presents to [facility] emergency department c/o a laceration to her right hand. # Acute right hand laceration with associated cellulitis and possible tendosynovitis. Present on admission - Appreciate ID and ortho consults. Will follow with recs - Initially treated with Zosyn and Zyvox and on 11/21/16 antibiotics changed to Oritavancin 1200 mg to cover gram-positive organisms and transition the Zosyn to Augmentin 875 p.o. b.i.d. for one more week to cover any anaerobes or scattered gram-negatives which could exist in the hand - Continue with supportive care including IV Morphine prn for severe pain while inpatient - Discussed with ortho on 11/21 and will keep patient for one more night to continue with at least one more day of inpatient OT # Methamphetamine Abuse and dependence. Present on admission. - Patient not interested in stopping at this point - Monitor for withdrawal symptoms # Nicotine dependence - Cessation discussed and encouraged - Nicotine patch upon request Dispo: Likely tomorrow pending further OT eval and recommendations Resuscitation Status: CPR: Attempt Resuscitation Eduardo Moore Nov 21, 2016 15:04
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
--- NOTE | 2016-11-21 15:53 | NUR ---
POST HOSPITAL FOLLOW UP: Scheduled follow up appointment at the [facility]idency [facility] for 12/02/16 check in at 1410 for 1420 appointment with . Located in the building on [address] Updated [employer] OF [employer]
--- NOTE | 2016-11-21 17:48 | NUR ---
Shift Note Patient pleasant and cooperative today. I/D consult, ortho consult, worked with occupational therapy. Antibiotics continue. No surgery scheduled at this time. Pain minimal. Should d/c tomorrow.
[2016-11-21] MEDS ORDERED: LORazepam 1 mg Tablet PO PRN (20:25)
[2016-11-21 21:10] VITALS: BP 126/79; PULSE 72; RESP 22; O2SAT 100
--- NOTE | 2016-11-22 02:22 | NUR ---
Anxiety Patient began shift stating that she was having a lot of anxiety and was hot. Patient was crying and very upset. Patient asked if she could get some medication to help calm her down. Hospitalist paiged and a one time dose of Ativan was added. Patient had calmed down and was resting in bed by the time the order for Ativan was added. Patient resting in bed much of the rest of shift. Care continues.
[2016-11-22] MEDS: Piper-Tazo 3.375 Gm/50 mL D5W Minibag Plus - Q8H over 4 hrs IV SCH ×2 (04:52)
[2016-11-22 05:30] VITALS: BP 118/74; PULSE 82; RESP 20; O2SAT 98
--- NOTE | 2016-11-22 08:26 | PCM.PNORTH ---
Subjective Date of Service: Nov 22, 2016 Visit Information: Reason for Visit Tenosynovitis Cellulitis Hand Ivda Surgery/Surgery Date Post-Op Day # Date of Admission: Nov 19, 2016 at 03:55 Hospital Day # Subjective Patient is patient from day 3 for right hand tenosynovitis. Patient is stable and doing well, no complaints today. States she is willing to work if occupational therapy and understands she may be going home today. Pain Management: PO Objective Exam Objective Patient is resting comfortably in the bed. Patient able to wiggle fingers, sensation and pulses intact. Wearing the splint appropriately. Vital Signs and I/O Vital Sign - Last Date Time Temp Pulse Resp B/P Pulse Ox O2 Delivery O2 Flow Rate FiO2 11/22/16 05:30 36.4 82 20 118/74 98 Room Air Intake and Output 11/21/16 11/21/16 11/22/16 Cumulative From/Thru 15:00 23:00 07:00 11/18/16 23:41 - 11/22/16 05:43 Intake Total 1036 ml 4385 ml 155 ml 19122 ml Output Total 1300 ml 2700 ml Balance 1036 ml 3085 ml 155 ml 8747 ml Intake Oral 1036 ml 3170 ml 7831 ml IV Total 1215 ml 155 ml 3616 ml Output Urine Total 1300 ml 2700 ml # Voids 2 10 # Bowel Movements 0 1 1 Lab & Micro Results Microbiology 11/19/16 Blood Culture - Preliminary, Resulted No growth at 2 days; culture examined... 11/19/16 MRSA (PCR) - Final, Complete Result Diagram: 11/20/16 0555 11/20/16 0555 Catheters: None Assessment & Plan Impression Patient is day 3 from admission for right hand tenosynovitis. Patient is stable and doing well. Problems: Plan Continue with antibiotics per ID no surgical intervention warrented at this time Start OT for ROM of fingers D/C splint prior to d/c home FU our as outpatient in 1-2 weeks Resuscitation Status: CPR: Attempt Resuscitation Jose Angel Tse PA-C Nov 22, 2016 08:26
[2016-11-22] MEDS: Amoxicillin-Clav 875-125 mg Tablet PO SCH (08:32)
[2016-11-22] MEDS: oxyCODONE 1 mg/mL 5 mL Liquid PO PRN (08:37)
--- NOTE | 2016-11-22 10:54 | NUR ---
Social Work: Discharge/Multidisciplinary Rounds D: EMR reviewed. Pt is on day 3 of hospitalization. Pt discussed in multidisciplinary rounds, and is medically stable for discharge. SW received CD order - pt declined CD assessment and housing resources. SW discussed this with MD during multidisciplinary rounds - no other SW needs identified. Pt to discharge on POABX. Pt provided with [facility] follow-up appointment information. Pt scheduled with PCP follow-up appointment on 12/02 at 1420. Pt agreeable. No other discharge planning needs identified. Pt to discharge home with family to transport. A: Pt who is independent at baseline. P: Pt to discharge on POABX. Pt provided with [facility] follow-up appointment information. Pt scheduled with PCP follow-up appointment on 12/02 at 1420. Pt agreeable. Pt to discharge home today with family to transport via POV. No other discharge needs identified. No other MD orders received - pt declined CD assessment and housing resources as ordered by MD. JUAN JOSÉ Napoles
--- NOTE | 2016-11-22 12:08 | PCM.DIMED ---
Discharge Instructions Date of Service Nov 22, 2016 Dates of Hospitalization Nov 19, 2016 at 03:55 Discharge Diagnosis Discharge Diagnosis # Acute right hand laceration with associated cellulitis and possible tendosynovitis. Present on admission # Methamphetamine Abuse and dependence. Present on admission. # Nicotine dependence Diet Discharge Diet: No restrictions Activity Discharge Activity: Limited until seen by PCP Call your provider Call your provider for: Fever or Chills, Shortness of breath, Bleeding, Chest pain, Vomitting, Excessive diarrhea, Weakness (unilateral) Patient Instructions Patient Instructions You were hospitalized due to right hand laceration with associated cellulitis and possible tendosynovitis.You received oritavancin( long-acting antibiotic). Please continue Augmentin for 1 week. Please follow up with new PCP residency clinic on December 02. Please continue occupational therapy outpatient. Follow-up Provider: [facility] Follow-up with PCP in: 2 weeks (December 02) Jack Zee MD Nov 22, 2016 12:08
[2016-11-22] MEDS ORDERED: AGM875T PO (12:09)
--- NOTE | 2016-11-22 15:46 | NUR ---
Discharge Patient was discharged and ambulated out by herself as requested by the patient. IV was DC'd intact. Patient was given and educated on discharge information which included new medication prescriptions, educational handouts, and follow up appointment instructions. Security was called to be there when the patient got her personal belongings out of the locked cabinet.
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
== END 2016-11-22 15:45 | disposition home or self-care (01) | DRG 605 ==
LOC: SED 23:37 → OSC 11-19 03:55
PROVIDERS: ADMIT Hospitalist; ATTEND Internal Medicine
DX: S61.431A Puncture wound without foreign body of right hand, initial encounter (principal); F15.20 Other stimulant dependence, uncomplicated; Z71.51 Drug abuse counseling and surveillance of drug abuser; M65.9 Synovitis and tenosynovitis, unspecified; F17.210 Nicotine dependence, cigarettes, uncomplicated; Z71.6 Tobacco abuse counseling; Z86.14 Personal history of Methicillin resistant Staphylococcus aureus infection; L03.011 Cellulitis of right finger